=== PATIENT | female | born 1990 | race Caucasian/White ===

== ENCOUNTER 2019-04-15 16:16 | Emergency (ER) | payer SELFPAY ==
[2019-04-15 16:23] VITALS: BMI 25.4
--- NOTE | 2019-04-15 18:02 | PDOC ---
History of Present Illness - General Chief Complaint: Pain, Acute Stated Complaint: ABD PAIN/ 16WKS PREG History Source: Patient Exam Limitations: No Limitations - History of Present Illness Initial Comments: 04/15/19 17:52 Patient is a 28-year-old female, , with history of kidney stone, gallstones , c/s x 2, is currently 4 months complaining of right flank pain, right upper quadrant pain x one month. States her pain has been intermittent but for the past 2 days pain has been persistent, stabbing, 7/10 associated with nausea and vomiting and fever last night. No vaginal bleeding. Patient also complains of swelling to bilateral ankles 2 days, no shortness of breath, no cough pain. Denies standing for very long hours. She is visiting from [place]. care in [place]. PMD: in [place] PMHX: as above PSOCHX: neg durg, etoh, cig All: NKDA GENERAL/CONSTITUTIONAL: No fever or chills. No weakness. No weight change. HEAD, EYES, EARS, NOSE AND THROAT: No change in vision. No ear pain or discharge. No sore throat. CARDIOVASCULAR: No chest pain or shortness of breath. RESPIRATORY: No cough, wheezing, or hemoptysis. GASTROINTESTINAL: No nausea, vomiting, diarrhea or constipation. No rectal bleeding. GENITOURINARY: No dysuria, frequency, or change in urination. MUSCULOSKELETAL: No joint or muscle swelling or pain. No neck or back pain. SKIN AND BREASTS: No rash or easy bruising. NEUROLOGIC: No headache, vertigo, loss of consciousness, or loss of sensation. PSYCHIATRIC: No depression or anxiety. ENDOCRINE: No increased thirst. No abnormal weight change. HEMATOLOGIC/LYMPHATIC: No anemia, easy bleeding, or history of blood clots. ALLERGIC/IMMUNOLOGIC: No hives or skin allergy. No latex allergy. GENERAL: The patient is awake, alert, and fully oriented, in mild distress. HEAD: Normal with no signs of trauma. EYES: Pupils equal, round and reactive to light, extraocular movements intact, sclera anicteric, conjunctiva clear. ENT: Ears normal, nares patent, oropharynx clear without exudates. Moist mucous membranes. NECK: Normal range of motion, supple without lymphadenopathy, JVD, or masses. LUNGS: Breath sounds equal, clear to auscultation bilaterally. No wheezes, and no crackles. HEART: Regular rate and rhythm, normal S1 and S2 without murmur, rub. ABDOMEN: Gravid fundus 16 weeks, soft, (+) tenderness RUQ, RCVAT, normoactive bowel sounds. No guarding, no rebound. No masses. EXTREMITIES: Normal range of motion, (+) edema b/l ankles. No clubbing or cyanosis. No cords, erythema, or tenderness. NEUROLOGICAL: Cranial nerves II through XII grossly intact. Normal speech, normal gait. PSYCH: Normal mood, normal affect. SKIN: Warm, Dry, normal turgor, no rashes or lesions noted. Past History - Past Medical History Allergies/Adverse Reactions: Allergies Allergy/AdvReac Type Severity Reaction Status Date / Time No Known Allergies Allergy Verified 04/15/19 16:23 Home Medications: Ambulatory Orders No122/Iron/Folic Acid [ Multi Tablet] 1 each PO DAILY 04/15/19 COPD: No - Suicide/Smoking/Psychosocial Hx Smoking History: Never smoked *Physical Exam - Vital Signs Last Vital Signs Temp Pulse Resp BP Pulse Ox 98.6 F 90 18 128/75 99 04/15/19 16:21 04/15/19 16:21 04/15/19 16:21 04/15/19 16:21 04/15/19 16:21 ED Treatment Course - LABORATORY CBC & Chemistry Diagram: 04/15/19 18:37 04/15/19 18:37 Medical Decision Making - Medical Decision Making 04/15/19 17:52 Patient is a 28-year-old female, , with history of kidney stone, gallstones , c/s x 2, is currently 4 months complaining of right flank pain, right upper quadrant pain x one month. States her pain has been intermittent but for the past 2 days pain has been persistent, stabbing, 7/10 associated with nausea and vomiting and fever last night. No vaginal bleeding. She is visiting from [place]. care in [place]. DDX: UTI, kidney stone, gall stone, dehydration, pain in labs, UA tylenol for pain US of pelvic, kidney bladder, RUQ. reasess. Patient Full Name: SCOTT SHEPHERD Patient Accession No: [id number] Patient : 1990 Reason for Exam: rt sided abd pain Referring Physician: Patient Name: JOAO CHAVEZ THIS IS A PRELIMINARY REPORT FROM [facility] DATE OF SERVICE: 2019-04-15 20:22:02 IMAGES: 74 EXAM: Abdominal ultrasound HISTORY: Right-sided abdominal pain COMPARISON: None. FINDINGS: Multiple gallstones are identified. No gallbladder wall thickening or pericholecystic fluid. Normal common bile duct measuring 2.4 mm. Normal liver. No upper abdominal free fluid. There is mild right nephrosis. Evaluation for a more distal obstruction is recommended. No left hydronephrosis. Normal spleen. Pancreas is not well visualized. THIS DOCUMENT HAS BEEN ELECTRONICALLY SIGNED Albino Nevarez MD 04/15/2019 23:43 EST MRick. Please call [facility] [phone] with questions. INTERPRETING RADIOLOGIST: Albino Nevarez MD Electronically Signed: Apr 15, 2019 11:43PM EDT Patient Full Name: SCOTT SHEPHERD Patient Accession No: [id number] Patient : 1990 Reason for Exam: eval heart Referring Physician: JOAO CHAVEZ Receipt of radiology report was confirmed with Sola Berumen MD at [place] April 15 2019 23:48:28 EDT. THIS DOCUMENT HAS BEEN ELECTRONICALLY SIGNED Albino Nevarez MD 04/15/2019 23:49 EST MRick. Please call [facility] [phone] with questions. INTERPRETING RADIOLOGIST: Albino Nevarez MD Electronically Signed: Apr 15, 2019 11:49PM EDT Patient Full Name: SCOTT SHEPHERD Patient Accession No: [id number] Patient : 1990 Reason for Exam: eval heart Referring Physician: Patient Name: JOAO CHAVEZ THIS IS A PRELIMINARY REPORT FROM [facility] DATE OF SERVICE: 2019-04-15 20:14:22 IMAGES: 20 EXAM: Obstetrical ultrasound HISTORY: Evaluate heart COMPARISON: None. FINDINGS: There is a single live intrauterine gestation with measurements corresponding to 19 weeks and 2 days. Estimated weight 292 g. heart rate is 137 bpm. motion is observed. Positive for placenta previa. Placenta is 5.12 cm in length and is closed. THIS DOCUMENT HAS BEEN ELECTRONICALLY SIGNED Albino Nevarez MD 04/15/2019 23:39 EST Denisha. Please call [facility] [phone] with questions. INTERPRETING RADIOLOGIST: Albino Nevarez MD Electronically Signed: Apr 15, 2019 11:39PM EDT Patient feels improved pain is resolved. Selected Entries 04/15/19 22:04 Temperature 97.6 F Pulse Rate [ 62 Left Radial] Respiratory 20 Rate Blood Pressure 112/68 [Left Arm] O2 Sat by Pulse 100 Oximetry (%) 04/16/19 00:07 Patient states that she will be in this country for about 2 more weeks and then leaves to go back to [place] but will return in August. The results of the diagnostic was explained to the patient and for the patient fully understands that she needs to follow-up wit her [facility] [employer] [facility] [facility] as soon as she gets back to her country and if she has any symptoms of bleeding and increased pain she should return to the emergency room I discussed the physical exam findings, ancillary test results and final diagnoses with the patient. I answered all of the patient's questions. The patient was satisfied with the care received and felt comfortable with the discharge plan and treatment plan. The Patient agrees to follow up with the primary care physician within 24-72 hours. *DC/Admit/Observation/Transfer Diagnosis at time of Disposition: Abdominal pain affecting , Flank pain Placenta previa Qualifiers: Trimester: second trimester Qualified Code(s): O44.02 - Complete placenta previa NOS or without hemorrhage, second trimester - Discharge Dispostion Disposition: HOME Condition at time of disposition: Stable - Referrals - Patient Instructions Printed Discharge Instructions: DI for Placenta Previa, DI for Abdominal Pain - - Early , DI for Flank Pain Additional Instructions: Your Discharge Instructions: You must call primary care physician within 24 hours to arrange follow-up. Return to the Emergency Department with any new, persistent or worsening symptoms, for fever, chills, SOB, dizziness or any other concerning changes that may occur. If you experience worsening pain in the right flank, associated with nausea, vomiting, fever, chills he must return to the emergency room immediately. Recommend no sex until evaluated by your OB doctor in [place] we have provided U week copies of her ultrasound and labs to present to your doctor. Print Language: SLOVAK - Post Discharge Activity
[2019-04-15] MEDS ORDERED: ACETAMINOPHEN 1000 MG/100 ML VIAL (NON FORMULARY) IVPB ONE (18:08)
[2019-04-15] MEDS ORDERED: SODIUM CHLORIDE 0.9% 500 ML INFUS.BAG IV ONE (18:08)
[2019-04-15 18:50] LABS: BASO % 0.7 % (0-2.0); EOS % 0.9 % (0-4.5); HEMATOCRIT 36.1 % (32.4-45.2); HEMOGLOBIN 12.2 GM/dL (10.7-15.3); LYMPH % 20.2 % (8-40); MCH 28.9 pg (25.7-33.7); MCHC 33.9 g/dl (32.0-36.0); MEAN CELL VOLUME 85.3 fl (80-96); MEAN PLT VOLUME 8.2 fl (7.5-11.1); MONO % 5.8 % (3.8-10.2); NEUT % 72.4 % (42.8-82.8); PLATELET COUNT 287 K/MM3 (134-434); RBC 4.23 M/mm3 (3.60-5.2); RDW 14.6 % (11.6-15.6); WHITE BLOOD COUNT 9.3 K/mm3 (4.0-10.0)
[2019-04-15 19:05] LABS: EPI CELLS 9.7 /HPF (0-5/HPF); HYALINE CASTS 8 /lpf (0-8); PH,URINE 6.5 (5.0-8.0); URINE APPEARANCE CLEAR; URINE BACTERIA 957.2 /hpf (NEGATIVE); URINE BILIRUBIN NEGATIVE (NEGATIVE); URINE COLOR YELLOW; URINE GLUCOSE (UA) NEGATIVE (NEGATIVE); URINE KETONE NEGATIVE (NEGATIVE); URINE LEUK ESTERASE TRACE (NEGATIVE); URINE NITRITE NEGATIVE (NEGATIVE); URINE PROTEIN NEGATIVE (NEGATIVE); URINE WBC 6 /hpf (0-5)
[2019-04-15 19:51] LABS: ALBUMIN 3.4 g/dl (3.4-5.0); BILIRUBIN,TOTAL 0.2 mg/dL (0.2-1); BLOOD UREA NITROGEN 9.8 mg/dL (7-18); CALCIUM 9.1 mg/dL (8.5-10.1); CREATININE 0.4 mg/dL (0.55-1.3); TOT PROT 7.4 g/dl (6.4-8.2)
[2019-04-15 19:52] LABS: POTASSIUM 4.3 mmol/L (3.5-5.1)
[2019-04-15] MEDS ORDERED: ACETAMINOPHEN INJECTION 100 ML IVPB ONE (20:02)
[2019-04-15 22:05] VITALS: BP 112/68; PULSE 62; TEMP 97.6
[2019-04-16 01:19] LABS: URINE RBC 12 /hpf (0-4)
== END 2019-04-16 00:30 | disposition home or self-care (01) ==
LOC: JER 16:16
PROC: 3E033NZ Introduction of Analgesics, Hypnotics, Sedatives into Peripheral Vein, Percutaneous Approach (ICD-10-PCS; principal; 2019-04-15)
PROC: 3E0337Z Introduction of Electrolytic and Water Balance Substance into Peripheral Vein, Percutaneous Approach (ICD-10-PCS; 2019-04-15)
DX: O26.892 Other specified pregnancy related conditions, second trimester (principal); O44.02 Complete placenta previa NOS or without hemorrhage, second trimester; O99.612 Diseases of the digestive system complicating pregnancy, second trimester; K80.20 Calculus of gallbladder without cholecystitis without obstruction; Z3A.19 19 weeks gestation of pregnancy
CPT/HCPCS: 36415; 76700-TC; 76775-TC; 76815-TC; 80053; 81003; 84702; 85025; 87086; 87186; 99282-25; J0131